=== PATIENT | female | born 1990 | race Two or more races ===

== ENCOUNTER 2019-12-03 10:01 | Emergency (ER) | payer MEDICAID ==
[~2019-12-03] VITALS: Ht 157.5 cm; Wt 55.8 kg
[2019-12-03 10:06] VITALS: BP 106/57
[2019-12-03] MEDS ORDERED: cefTRIAXone SOD 1,000 MG VL ONE (10:44)
[2019-12-03] MEDS ORDERED: cefTRIAXone SOD 1,000 MG VL IM ONE (10:45)
[2019-12-03] MEDS ORDERED: LIDOCAINE 1% HCL (LOCAL ANESTH.) INJ 20ML MDV ONE (10:46)
== END 2019-12-03 10:54 | disposition home or self-care (01) ==
LOC: ER 10:01
DX: S80.861A Insect bite (nonvenomous), right lower leg, initial encounter (principal); W57.XXXA Bitten or stung by nonvenomous insect and other nonvenomous arthropods, initial encounter; Y93.89 Activity, other specified; Y92.89 Other specified places as the place of occurrence of the external cause; Y99.8 Other external cause status
CPT/HCPCS: 99283; J0696; J2001

== ENCOUNTER → 2020-01-21 | Emergency (ER) | payer MEDICAID ==
[~2020-01-21] VITALS: Ht 157.5 cm; Wt 55.3 kg
[2020-01-21 18:17] VITALS: BP 112/71
[2020-01-21 18:44] LABS: Urine Bacteria NONE SEEN /hpf (None Seen); Urine Blood Negative /uL (Negative); Urine Specific Gravity 1.013 (1.001-1.035); Urine WBC 1 /hpf (0 - 5)
[2020-01-21 18:55] LABS: Basophils # (auto) 0.1 10 ^3/uL (0-0.2); Basophils % (auto) 0.7 % (0.0-2.0); Eosinophils # (auto) 0.2 10 ^3/uL (0-0.8); Eosinophils % (auto) 2.9 % (0.0-7.0); Hematocrit 37.9 % (36.0-46.0); Hemoglobin 12.6 g/dL (12.2-16.2); Lymphocytes # (auto) 2.3 10 ^3/uL (0.4-5.4); Lymphocytes % (auto) 27.9 % (10.0-50.0); Mean Corpuscular Hemoglobin 29.9 pg (28.0-32.0); Mean Corpuscular Hgb Conc. 33.3 g/dL (32.0-36.0); Mean Corpuscular Volume 89.8 fL (80.0-100.0); Monocytes # (auto) 0.6 10 ^3/uL (0-1.3); Monocytes % (auto) 7.1 % (0.0-12.0); Neutrophils # (auto) 5.2 10 ^3/uL (1.6-8.6); Neutrophils % (auto) 61.4 % (37.0-80.0); Nucleated Red Blood Cells % 0.1 %; Platelet Count (auto) 203 10^3/uL (140-450); Red Blood Cells 4.22 10^6/uL (4.0-5.20); Red Cell Distribution Width 14.5 % (11.8-14.3); White Blood Cell 8.4 10^3/uL (4.4-10.8)
[2020-01-21 19:07] LABS: Albumin 3.6 g/dL (3.4-5.0); BUN/Creatinine Ratio 26.3; Calcium 8.8 mg/dL (8.5-10.1); Potassium 4.2 mmol/L (3.5-5.1)
[2020-01-21 19:09] LABS: Bilirubin, Total 0.2 mg/dL (0.2-1.0); Total Protein 7.2 g/dL (6.4-8.2)
== END | disposition left against medical advice (07) ==
LOC: ER 16:49
DX: R42 Dizziness and giddiness (principal)
CPT/HCPCS: 36415; 70450; 80053; 81001; 81025; 85025

== ENCOUNTER 2023-08-27 08:07 | Emergency (ER) | payer MEDICAID ==
[~2023-08-27] VITALS: Ht 157.5 cm; Wt 61.5 kg
[2023-08-27] MEDS ORDERED: DexAMETHasone SOD PHOS 10MG/1ML VIAL INJ IM ONE (09:00)
[2023-08-27 11:52] LABS: COVID19 ANTIGEN SOFIA FIA NEGATIVE (NEGATIVE)
[2023-08-27 11:53] LABS: Rapid Influenza A Negative (Negative)
[2023-08-27 12:06] LABS: Rapid Influenza B Positive (Negative)
[2023-08-27] MEDS ORDERED: LORA-622 PO (12:29)
[2023-08-27] MEDS ORDERED: TAMIFLU PO (12:29)
[2023-08-27] MEDS ORDERED: ACET500T58 PO (12:29)
[2023-08-27] MEDS ORDERED: IBUP-1454 PO (12:29)
[2023-08-27 12:41] LABS: Rapid Strep A Screen-Throat Positive
[2023-08-27] MEDS ORDERED: AZIT-81 PO ×2 (12:50→16:15)
[2023-08-27 13:13] VITALS: BP 99/66; PULSE 66; RESP 18; TEMP 98.1; O2SAT 97
[2023-08-30] MEDS ORDERED: METH4PAK PO (10:46)
== END 2023-08-27 13:35 | disposition home or self-care (01) ==
LOC: ER 08:07
DX: J10.1 Influenza due to other identified influenza virus with other respiratory manifestations (principal); J02.0 Streptococcal pharyngitis; Z20.822 Contact with and (suspected) exposure to COVID-19
CPT/HCPCS: 36415; 87426; 87804; 87880; 96372; 99283; J1100

== ENCOUNTER 2023-08-28 20:09 | Emergency (ER) | payer MEDICAID ==
[~2023-08-28] VITALS: Ht 157.5 cm; Wt 61.3 kg
[~2023-08-28 20:09] MED LIST: ACET500T58 PO; AZIT-81 PO; IBUP-1454 PO; LORA-622 PO; TAMIFLU PO
[2023-08-28 23:00] VITALS: BP 105/71; PULSE 85; RESP 18; TEMP 98.2; O2SAT 98
[2023-08-28] MEDS ORDERED: ACETAMINOPHEN 650 mg PER 20.3 mL UD PO ONE (23:30)
[2023-08-28] MEDS ORDERED: DexAMETHasone SOD PHOS 10MG/1ML VIAL INJ IM ONE (23:30)
[2023-08-30] MEDS ORDERED: METH4PAK PO (10:46)
== END 2023-08-29 10:57 | disposition home or self-care (01) ==
LOC: ER 20:11
DX: J03.90 Acute tonsillitis, unspecified (principal)
CPT/HCPCS: 70490; 96372; 99285; J1100

== ENCOUNTER → 2025-07-09 | Emergency (ER) | payer MEDICAID ==
[~2025-07-09] VITALS: Ht 157.5 cm; Wt 62.4 kg
[~2025-07-09] MED LIST changes: +AZIT-185 PO; -AZIT-81 PO; +METH4PAK PO
[2025-07-09 03:22] VITALS: BP 117/83; PULSE 98; RESP 18; TEMP 98.1; O2SAT 96
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
== END | disposition left against medical advice (07) ==
LOC: ER 03:21
DX: S09.8XXA Other specified injuries of head, initial encounter (principal); Z53.21 Procedure and treatment not carried out due to patient leaving prior to being seen by health care provider; X58.XXXA Exposure to other specified factors, initial encounter; Y93.89 Activity, other specified; Y92.89 Other specified places as the place of occurrence of the external cause; Y99.8 Other external cause status